=== PATIENT | female | born 2000 | race Two or more races ===

== ENCOUNTER 2023-09-04 11:21 | Emergency (ER) | payer OTHER ==
[2023-09-04 11:35] VITALS: PULSE 96; TEMP 98.3; BMI 30.2
[2023-09-04 13:14] LABS: PH,URINE 5.5 (5.0-8.0); URINE APPEARANCE CLEAR; URINE BILIRUBIN NEGATIVE (NEGATIVE); URINE COLOR YELLOW; URINE GLUCOSE (UA) NEGATIVE (NEGATIVE); URINE KETONE NEGATIVE (NEGATIVE); URINE LEUK ESTERASE NEGATIVE (NEGATIVE); URINE NITRITE NEGATIVE (NEGATIVE); URINE PROTEIN NEGATIVE (NEGATIVE); URINE UROBILINOGEN 0.2 mg/dL (0.2-1.0)
[2023-09-04 13:22] LABS: HCG,QUALITATIVE URINE NEGATIVE
[2023-09-04 16:31] VITALS: BP 118/68; RESP 16
== END 2023-09-04 16:30 | disposition home or self-care (01) ==
LOC: JER 11:21
DX: R10.32 Left lower quadrant pain (principal); R35.0 Frequency of micturition
CPT/HCPCS: 76830-TC; 81003; 84703; 87086; 99284-25